=== PATIENT | male | born 1960 | race Caucasian/White ===

== ENCOUNTER 2020-01-25 02:29 | Emergency (ER) | payer SELFPAY | END 2020-01-25 02:49 | LOC: ERS 02:29 | DX: M79.604 Pain in right leg (principal); I10 Essential (primary) hypertension; F32.9 Major depressive disorder, single episode, unspecified; F41.9 Anxiety disorder, unspecified; F17.220 Nicotine dependence, chewing tobacco, uncomplicated | CPT/HCPCS: 99281 ==